=== PATIENT | female | born 1970 | race Caucasian/White ===

== ENCOUNTER → 2020-01-18 | Outpatient (CLI) | payer OTHER ==
[~2020-01-18] MED LIST: ACET325T26 PO; BACL-19 PO; LIOT5TAB10 PO; METO25TA35 PO; OMNIPAQUE 350 MG/ML, 100ML BOTTLE ONE; ONDA4TAB13 PO; QUET100T PO; TRAM50TA2 PO; VANC1VIA3 PO
== END | disposition home or self-care (01) ==
LOC: CFH 12:28
PROVIDERS: ATTEND Internal Medicine Infectious Disease
DX: R10.9 Unspecified abdominal pain (principal); K65.1 Peritoneal abscess
CPT/HCPCS: 74177; Q9967

== ENCOUNTER 2020-03-22 14:06 | Inpatient (IN) | payer OTHER ==
[~2020-03-22] VITALS: Ht 175.3 cm; Wt 62.3 kg
[~2020-03-22 14:06] MED LIST changes: -BIOT10004 PO; -CABE0.5T PO; -CLON0.1T2 PO; -LEVO200C2 PO; -MAGN400T36 PO; -MULT-658 PO; -OMNIPAQUE 350 MG/ML, 100ML BOTTLE ONE; -SUMA100T3 PO; -TRAZ150T62 PO; -[UNRECOGNIZED DRUG - OTHER]; -birth control
--- NOTE | 2020-03-22 14:20 | NUR ---
PT AMBULATORY TO ROOM 9 W/ C/O DISTENDED AND FIRM ABDOMEN. PT WENT TO SEE GI MD TODAY AND WAS SENT HERE FOR CT SCAN. IN RADIOLOGY HAD PIV INITIATED AND PT WAS TOLD TO CHECK INTO ED. PT STATES SHE HAS RUPTURED APPENDICITIS WITH COLON RESECTION END OF DECEMBER AND SPENT [address] [facility]. PT STATES SHE HAS BEEN CONSTIPATED W/ DIARRHEA THIS AM. STATES NOT WNL FOR PT. PT RESTING ON GURNEY. C/O PAIN 08/15. MONITORS APPLIED. ROBERTA DEAN AT BEDSIDE FOR EVAL.
[2020-03-22] MEDS ORDERED: MORPHINE SULFATE 4 MG/ML, 1ML ONE ×2 (14:30→15:51)
[2020-03-22] MEDS ORDERED: ONDANSETRON 2MG/ML, 2ML ONE ×2 (14:30→17:27)
[2020-03-22] MEDS ORDERED: SODIUM CHLORIDE 0.9% 1,000ML IVBOLUS ONE (14:30)
[2020-03-22] MEDS ORDERED: ONDANSETRON 2MG/ML, 2ML IVPush ONE (14:30)
[2020-03-22] MEDS: MORPHINE SULFATE 4 MG/ML, 1ML IVPush PRN ×2 (14:37→15:53)
[2020-03-22 14:59] LABS: HCT (SEDRATE) 43.4 % (34.6-47.8)
[2020-03-22 14:59] LABS: MICROSCOPIC NOT IND
[2020-03-22 15:00] LABS: BASOPHILS % (AUTO) 0 % (0-1); EOSINOPHILS % (AUTO) 0 % (1-7); LYMPHOCYTES % (AUTO) 19 % (22-44); MEAN CORPUSCULAR HEMOGLOBIN 30.8 pg (27.0-34.8); MEAN PLATELET VOLUME 9.2 fL (7.4-10.4); MONOCYTES % (AUTO) 7 % (2-9); NEUTROPHILS % (AUTO) 74 % (42-75); PLATELET COUNT 239 x10^3/uL (130-400); RED BLOOD COUNT 4.85 x10^6/uL (3.82-5.3); RED CELL DISTRIBUTION WIDTH 13.5 % (9.6-15.2)
[2020-03-22 15:01] LABS: MD NO
[2020-03-22 15:10] LABS: ALBUMIN 3.5 g/dL (3.4-5.0); CHLORIDE 104 mmol/L (98-107)
--- NOTE | 2020-03-22 15:13 | NUR ---
Break RN note. Pt c/o continued pain and nausea despite meds.
--- NOTE | 2020-03-22 15:16 | NUR ---
Break RN note: Discussed pt condition with Morris MADERA and Dr. Murcia. Dr. Murcia reports he will evaluate the pt anais. Pt updated on this.
[2020-03-22 15:18] LABS: ALANINE AMINOTRANSFERASE 22 U/L (12-78); ALKALINE PHOSPHATASE 71 U/L (45-117); ANION GAP 8 mmol/L (5-15); BILIRUBIN,TOTAL 0.5 mg/dL (0.2-1.0); C-REACTIVE PROTEIN, QUANT 0.12 mg/dL (0.02-0.49); CALCIUM 9.8 mg/dL (8.5-10.1); CREATININE 0.83 mg/dL (0.55-1.02); TOTAL PROTEIN 7.8 g/dL (6.4-8.2)
[2020-03-22] MEDS ORDERED: DIPHENHYDRAMINE 50 MG/ML, 1ML IVPush ONE (15:30)
[2020-03-22] MEDS ORDERED: METOCLOPRAMIDE 5 MG/ML, 2ML IVPush ONE (15:30)
--- NOTE | 2020-03-22 15:30 | NUR ---
Break RN note: Dr. Murcia at bedside to evaluate pt.
[2020-03-22] MEDS ORDERED: METOCLOPRAMIDE 5 MG/ML, 2ML ONE (15:51)
[2020-03-22] MEDS ORDERED: DIPHENHYDRAMINE 50 MG/ML, 1ML ONE (15:51)
--- NOTE | 2020-03-22 15:57 | NUR ---
PT MEDICATED PER MAY. RESTING ON [facility].
[2020-03-22] MEDS ORDERED: MELATONIN 5 MG TABLET PO PRN (16:30)
[2020-03-22] MEDS ORDERED: POLYETHYLENE GLYCOL 17 GM PACKET PO PRN (16:30)
[2020-03-22] MEDS ORDERED: hydrALAzine 20 MG/ML, 1ML IVPush PRN (16:30)
[2020-03-22] MEDS ORDERED: TEMAZEPAM 15 MG CAPSULE PO PRN (16:30)
[2020-03-22] MEDS ORDERED: ACETAMINOPHEN 325 MG TABLET PO PRN (16:30)
[2020-03-22] MEDS ORDERED: DOCUSATE 100 MG CAPSULE PO PRN (16:30)
[2020-03-22] MEDS ORDERED: BISACODYL 10 MG SUPP PR PRN (16:30)
--- NOTE | 2020-03-22 17:02 | NUR ---
[facility] AT BEDSIDE. PT AWARE OF ADMIT AND IS AGREEABLE.
[2020-03-22] MEDS ORDERED: ENOXAPARIN 40 MG/0.4 ML ONE (17:06)
[2020-03-22] MEDS ORDERED: LORazepam 2 MG/ML, 1ML ONE (17:07)
[2020-03-22] MEDS: LORazepam 2 MG/ML, 1ML IVPush PRN (17:10)
[2020-03-22] MEDS: ENOXAPARIN 40 MG/0.4 ML SQ SCH ×2 (17:10→17:12)
[2020-03-22] MEDS ORDERED: OXYcodone IR 5MG TABLET ONE (17:27)
[2020-03-22] MEDS: ONDANSETRON 2MG/ML, 2ML IVPush PRN (17:29)
[2020-03-22] MEDS: OXYcodone IR 5MG TABLET PO PRN (17:29)
[2020-03-22] MEDS ORDERED: LORazepam 2 MG/ML, 1ML IVPush PRN (17:30)
--- NOTE | 2020-03-22 17:38 | NUR ---
REPORT GIVEN TO ALEX GUPTA RN. ALL QUESTIONS ANSWERED. AWAITING PT TRANSPORT.
[2020-03-22 18:00] VITALS: BP 173/90
[2020-03-22] MEDS: METOPROLOL TARTRATE 25 MG TAB PO SCH (18:23)
[2020-03-22] MEDS: SODIUM CHLORIDE 0.9% 1,000 ML IV SCH (18:30)
[2020-03-22] MEDS: HYDROmorphone 2 MG/ML, 1ML IVPush PRN ×2 (19:26→20:54)
[2020-03-22] MEDS ORDERED: HYDROmorphone 1 MG/ML, 1ML INJ ONE (20:43)
[2020-03-22] MEDS ORDERED: FAMOTIDINE 40 MG TABLET ONE (20:43)
[2020-03-22] MEDS: FAMOTIDINE 20 MG TABLET PO SCH (20:53)
[2020-03-22] MEDS: QUETIAPINE 100MG TABLET PO SCH (20:53)
[2020-03-22] MEDS: TRAZODONE 100MG TABLET PO PRN ×2 (21:27→22:37)
[2020-03-23] MEDS: SODIUM CHLORIDE 0.9% 1,000 ML IV SCH (00:36)
[2020-03-23 01:14] VITALS: BP 122/72
[2020-03-23] MEDS: HYDROmorphone 2 MG/ML, 1ML IVPush PRN ×5 (01:46→19:21)
[2020-03-23] MEDS: ONDANSETRON 2MG/ML, 2ML IVPush PRN ×3 (04:58→19:21)
[2020-03-23] MEDS: METOPROLOL TARTRATE 25 MG TAB PO SCH ×2 (05:00→17:49)
[2020-03-23 05:04] VITALS: BP 127/75
[2020-03-23 06:09] LABS: BASOPHILS % (AUTO) 0 % (0-1); EOSINOPHILS % (AUTO) 0 % (1-7); LYMPHOCYTES % (AUTO) 38 % (22-44); MD NO; MEAN CORPUSCULAR HEMOGLOBIN 30.9 pg (27.0-34.8); MEAN CORPUSCULAR HGB CONC 33.7 g/dL (32.4-35.8); MEAN PLATELET VOLUME 9.7 fL (7.4-10.4); MONOCYTES % (AUTO) 11 % (2-9); NEUTROPHILS % (AUTO) 51 % (42-75); PLATELET COUNT 197 x10^3/uL (130-400); RED BLOOD COUNT 4.24 x10^6/uL (3.82-5.3); RED CELL DISTRIBUTION WIDTH 13.4 % (9.6-15.2)
[2020-03-23 06:21] LABS: CHLORIDE 112 mmol/L (98-107)
[2020-03-23 06:25] LABS: CALCIUM 8.4 mg/dL (8.5-10.1); CREATININE 0.67 mg/dL (0.55-1.02)
[2020-03-23 06:50] LABS: ANION GAP 7 mmol/L (5-15)
[2020-03-23 07:21] VITALS: BP 126/76
[2020-03-23] MEDS ORDERED: LEVO200C2 PO (07:27)
[2020-03-23] MEDS ORDERED: FAMOTIDINE 40 MG TABLET ONE ×2 (08:03→19:18)
[2020-03-23] MEDS: D5%-0.9% NACL+KCL 20MEQ 1,000 ML IV SCH ×2 (08:06→17:11)
[2020-03-23] MEDS: LIOTHYRONINE 5 MCG TABLET PO SCH (08:07)
[2020-03-23] MEDS: FAMOTIDINE 20 MG TABLET PO SCH ×2 (08:07→19:21)
[2020-03-23] MEDS: PANTOPRAZOLE 40 MG IV IVPush SCH (09:13)
[2020-03-23] MEDS ORDERED: POTASSIUM CHLORIDE 20 MEQ in SODIUM CHLORIDE 0.9% 250 ML IV ONE (10:00)
[2020-03-23 12:19] VITALS: BP 149/89
[2020-03-23] MEDS ORDERED: SUMA100T3 PO (13:53)
[2020-03-23] MEDS: ENOXAPARIN 40 MG/0.4 ML SQ SCH (16:30)
[2020-03-23] MEDS: LORazepam 2 MG/ML, 1ML IVPush PRN ×2 (16:41→21:13)
[2020-03-23 18:06] LABS: CLOSTRIDIUM DIFFICILE ANTIGEN NEGATIVE; CLOSTRIDIUM DIFFICILE TOXIN NEGATIVE (Negative)
[2020-03-23 19:11] VITALS: BP 130/82
[2020-03-23] MEDS: QUETIAPINE 100MG TABLET PO SCH (21:13)
[2020-03-23] MEDS: TRAZODONE 100MG TABLET PO PRN (21:13)
[2020-03-24] MEDS ORDERED: BIOT10004 PO (00:36)
[2020-03-24] MEDS ORDERED: MAGN400T36 PO (00:36)
[2020-03-24] MEDS ORDERED: [UNRECOGNIZED DRUG - OTHER] (00:36)
[2020-03-24] MEDS ORDERED: MULT-658 PO (00:36)
[2020-03-24] MEDS ORDERED: CLON0.1T2 PO (00:36)
[2020-03-24] MEDS ORDERED: CABE0.5T PO (00:36)
[2020-03-24] MEDS ORDERED: TRAZ150T62 PO (00:36)
[2020-03-24] MEDS ORDERED: birth control (00:37)
[2020-03-24 02:01] VITALS: BP 154/91
[2020-03-24] MEDS ORDERED: HYDROmorphone 1 MG/ML, 1ML INJ ONE ×2 (02:08→05:15)
[2020-03-24] MEDS: HYDROmorphone 2 MG/ML, 1ML IVPush PRN ×7 (02:11→21:59)
[2020-03-24] MEDS: ONDANSETRON 2MG/ML, 2ML IVPush PRN ×3 (03:45→18:59)
[2020-03-24] MEDS: LEVOTHYROXINE 200 MCG TABLET PO SCH (05:22)
[2020-03-24] MEDS: METOPROLOL TARTRATE 25 MG TAB PO SCH ×2 (05:22→18:03)
[2020-03-24] MEDS: D5%-0.9% NACL+KCL 20MEQ 1,000 ML IV SCH ×2 (05:23→19:20)
[2020-03-24 05:49] LABS: BASOPHILS % (AUTO) 0 % (0-1); EOSINOPHILS % (AUTO) 2 % (1-7); LYMPHOCYTES % (AUTO) 54 % (22-44); MEAN CORPUSCULAR HEMOGLOBIN 30.6 pg (27.0-34.8); MEAN CORPUSCULAR HGB CONC 33.6 g/dL (32.4-35.8); MEAN PLATELET VOLUME 9.5 fL (7.4-10.4); MONOCYTES % (AUTO) 10 % (2-9); NEUTROPHILS % (AUTO) 34 % (42-75); PLATELET COUNT 180 x10^3/uL (130-400); RED BLOOD COUNT 4.29 x10^6/uL (3.82-5.3); RED CELL DISTRIBUTION WIDTH 13.5 % (9.6-15.2)
[2020-03-24 05:54] LABS: CALCIUM 8.5 mg/dL (8.5-10.1); CHLORIDE 116 mmol/L (98-107)
[2020-03-24 05:57] LABS: ALBUMIN 2.6 g/dL (3.4-5.0); ANION GAP 5 mmol/L (5-15); CREATININE 0.63 mg/dL (0.55-1.02)
[2020-03-24 06:03] LABS: MD NO
[2020-03-24] MEDS: PANTOPRAZOLE 40 MG IV IVPush SCH (06:06)
[2020-03-24] MEDS: LIOTHYRONINE 5 MCG TABLET PO SCH (06:11)
[2020-03-24 07:36] VITALS: BP 122/70
[2020-03-24] MEDS: LORazepam 2 MG/ML, 1ML IVPush PRN (07:53)
[2020-03-24] MEDS: FAMOTIDINE 20 MG TABLET PO SCH ×2 (09:00→20:40)
[2020-03-24] MEDS ORDERED: MEPERIDINE/PF 25MG/0.5ML IVPush PRN (09:30)
[2020-03-24] MEDS ORDERED: EPHEDRINE 50 MG/ML, 1ML IM PRN (09:30)
[2020-03-24] MEDS ORDERED: DIPHENHYDRAMINE 50 MG/ML, 1ML IVPush PRN (09:30)
[2020-03-24] MEDS ORDERED: PROMETHAZINE 25 MG/ML, 1ML IVPush PRN (09:30)
[2020-03-24] MEDS ORDERED: OXYcodone 5 MG/5 ML ORAL.SOL UDC PO PRN (09:30)
[2020-03-24] MEDS ORDERED: LABETALOL 5MG/ML, 20ML IV PRN (09:30)
[2020-03-24] MEDS ORDERED: EPHEDRINE 50 MG/ML, 1ML IVPush PRN (09:30)
[2020-03-24] MEDS ORDERED: HYDROmorphone 1 MG/ML, 1ML INJ IVPush PRN (09:30)
[2020-03-24] MEDS ORDERED: DIAZEPAM 5 MG/ML, 2ML IVPush PRN (09:30)
[2020-03-24] MEDS ORDERED: FENTANYL PF 100 MCG/2ML IV PRN (09:30)
[2020-03-24] MEDS ORDERED: ONDANSETRON 2MG/ML, 2ML IVPush PRN (09:30)
[2020-03-24] MEDS ORDERED: PROPOFOL 10 MG/ML, 20ML ONE (09:51)
[2020-03-24 12:46] VITALS: BP 128/86
[2020-03-24] MEDS: ENOXAPARIN 40 MG/0.4 ML SQ SCH (16:30)
[2020-03-24 18:51] VITALS: BP 164/98
[2020-03-24] MEDS ORDERED: FAMOTIDINE 40 MG TABLET ONE (20:15)
[2020-03-24] MEDS: QUETIAPINE 100MG TABLET PO SCH (20:40)
[2020-03-24] MEDS: TRAZODONE 100MG TABLET PO PRN ×2 (20:44→21:59)
[2020-03-25 02:06] VITALS: BP 149/81
[2020-03-25] MEDS: HYDROmorphone 2 MG/ML, 1ML IVPush PRN ×5 (02:37→20:33)
[2020-03-25] MEDS: ONDANSETRON 2MG/ML, 2ML IVPush PRN ×3 (06:02→20:30)
[2020-03-25] MEDS: LEVOTHYROXINE 200 MCG TABLET PO SCH (06:02)
[2020-03-25] MEDS: METOPROLOL TARTRATE 25 MG TAB PO SCH ×2 (06:03→20:32)
[2020-03-25 06:40] VITALS: BP 123/78
[2020-03-25] MEDS ORDERED: FAMOTIDINE 40 MG TABLET ONE ×2 (08:12→20:23)
[2020-03-25] MEDS: LORazepam 2 MG/ML, 1ML IVPush PRN ×2 (08:17→22:41)
[2020-03-25] MEDS: LIOTHYRONINE 5 MCG TABLET PO SCH (08:18)
[2020-03-25] MEDS: FAMOTIDINE 20 MG TABLET PO SCH ×2 (08:22→20:31)
[2020-03-25] MEDS ORDERED: OMNIPAQUE 350 MG/ML, 100ML BOTTLE ONE (10:39)
[2020-03-25] MEDS: D5%-0.9% NACL+KCL 20MEQ 1,000 ML IV SCH (11:01)
[2020-03-25] MEDS ORDERED: LORazepam 2 MG/ML, 1ML IVPush ONE (11:30)
[2020-03-25 12:25] VITALS: BP 119/86
[2020-03-25] MEDS: OXYcodone IR 5MG TABLET PO PRN (12:47)
[2020-03-25 13:11] VITALS: BP 120/79
[2020-03-25] MEDS: ENOXAPARIN 40 MG/0.4 ML SQ SCH (15:11)
[2020-03-25 20:00] VITALS: BP 118/82
[2020-03-25] MEDS ORDERED: OMNIPAQUE 350 MG/ML, 150 ML BOTTLE ONE (20:04)
[2020-03-25] MEDS: QUETIAPINE 100MG TABLET PO SCH (20:32)
[2020-03-25] MEDS: TRAZODONE 100MG TABLET PO PRN ×2 (20:53→22:10)
[2020-03-26] MEDS: HYDROmorphone 2 MG/ML, 1ML IVPush PRN ×6 (00:04→23:00)
[2020-03-26 00:07] VITALS: BP 119/75
[2020-03-26] MEDS: LORazepam 2 MG/ML, 1ML IVPush PRN ×3 (06:15→17:45)
[2020-03-26] MEDS: LEVOTHYROXINE 200 MCG TABLET PO SCH (06:15)
[2020-03-26] MEDS: METOPROLOL TARTRATE 25 MG TAB PO SCH ×2 (06:15→17:57)
[2020-03-26 06:30] VITALS: BP 109/71
[2020-03-26] MEDS: D5%-0.9% NACL+KCL 20MEQ 1,000 ML IV SCH ×2 (06:44→19:06)
[2020-03-26] MEDS ORDERED: FAMOTIDINE 40 MG TABLET ONE ×2 (08:59→20:13)
[2020-03-26] MEDS: FAMOTIDINE 20 MG TABLET PO SCH ×2 (09:00→21:00)
[2020-03-26] MEDS: ESOMEPRAZOLE 40 MG IV IVPush SCH (09:07)
[2020-03-26] MEDS: LIOTHYRONINE 5 MCG TABLET PO SCH (09:08)
[2020-03-26 12:37] VITALS: BP 146/84
[2020-03-26] MEDS: ONDANSETRON 2MG/ML, 2ML IVPush PRN (15:49)
[2020-03-26] MEDS: ENOXAPARIN 40 MG/0.4 ML SQ SCH (16:30)
[2020-03-26 19:13] VITALS: BP 124/82
[2020-03-26] MEDS: QUETIAPINE 100MG TABLET PO SCH (21:47)
[2020-03-26] MEDS: TRAZODONE 100MG TABLET PO PRN (21:51)
[2020-03-27 02:10] VITALS: BP 129/71
[2020-03-27] MEDS: HYDROmorphone 2 MG/ML, 1ML IVPush PRN ×2 (02:29→10:12)
[2020-03-27] MEDS: METOPROLOL TARTRATE 25 MG TAB PO SCH ×2 (05:18→18:30)
[2020-03-27] MEDS: LEVOTHYROXINE 200 MCG TABLET PO SCH (05:18)
[2020-03-27 06:40] VITALS: BP 108/69
[2020-03-27] MEDS: LORazepam 2 MG/ML, 1ML IVPush PRN ×2 (08:30→16:11)
[2020-03-27] MEDS: ESOMEPRAZOLE 40 MG IV IVPush SCH (10:21)
[2020-03-27] MEDS: ONDANSETRON 2MG/ML, 2ML IVPush PRN ×2 (10:27→16:04)
[2020-03-27] MEDS: D5%-0.9% NACL+KCL 20MEQ 1,000 ML IV SCH ×2 (11:32→22:01)
[2020-03-27 13:04] VITALS: BP 132/80
[2020-03-27] MEDS ORDERED: FAMOTIDINE 40 MG TABLET ONE (15:03)
[2020-03-27] MEDS: FAMOTIDINE 20 MG TABLET PO SCH ×2 (15:20→20:02)
[2020-03-27] MEDS: LIOTHYRONINE 5 MCG TABLET PO SCH (15:20)
[2020-03-27] MEDS: ENOXAPARIN 40 MG/0.4 ML SQ SCH (16:30)
[2020-03-27 19:44] VITALS: BP 146/97
[2020-03-27] MEDS ORDERED: SUMATRIPTAN 25 MG TABLET PO PRN (20:30)
[2020-03-27] MEDS ORDERED: SUMATRIPTAN 50 MG TABLET ONE (20:34)
[2020-03-27] MEDS: QUETIAPINE 100MG TABLET PO SCH (22:01)
[2020-03-27] MEDS: TRAZODONE 100MG TABLET PO PRN ×2 (22:06→23:42)
[2020-03-28 00:02] VITALS: BP 123/81
[2020-03-28] MEDS: LEVOTHYROXINE 200 MCG TABLET PO SCH (05:07)
[2020-03-28] MEDS: METOPROLOL TARTRATE 25 MG TAB PO SCH ×2 (05:08→17:45)
[2020-03-28 06:41] VITALS: BP 118/81
[2020-03-28] MEDS: FAMOTIDINE 20 MG TABLET PO SCH ×2 (09:00→23:18)
[2020-03-28] MEDS ORDERED: FAMOTIDINE 40 MG TABLET ONE ×2 (09:24→23:13)
[2020-03-28] MEDS: LIOTHYRONINE 5 MCG TABLET PO SCH (09:34)
[2020-03-28] MEDS: ONDANSETRON 2MG/ML, 2ML IVPush PRN ×3 (09:34→22:34)
[2020-03-28] MEDS: ESOMEPRAZOLE 40 MG IV IVPush SCH (09:36)
[2020-03-28] MEDS: D5%-0.9% NACL+KCL 20MEQ 1,000 ML IV SCH (09:49)
[2020-03-28] MEDS: LORazepam 2 MG/ML, 1ML IVPush PRN ×2 (09:49→14:52)
[2020-03-28 12:25] VITALS: BP 148/92
[2020-03-28] MEDS: SUMATRIPTAN 100 MG TABLET PO PRN ×2 (14:47→15:07)
[2020-03-28] MEDS: ENOXAPARIN 40 MG/0.4 ML SQ SCH (15:59)
[2020-03-28 17:39] VITALS: BP 143/96
[2020-03-28] MEDS: OXYcodone/APAP 5/325MG TABLET PO PRN ×2 (17:44→22:33)
[2020-03-28] MEDS: METOCLOPRAMIDE 5 MG/ML, 2ML IVPush SCH ×2 (17:45→23:18)
[2020-03-28 19:05] VITALS: BP 131/85
[2020-03-28] MEDS ORDERED: ONDANSETRON ODT 4 MG ONE (22:31)
[2020-03-28] MEDS: QUETIAPINE 100MG TABLET PO SCH (23:17)
[2020-03-28] MEDS: TRAZODONE 100MG TABLET PO PRN (23:18)
[2020-03-29] VITALS (7 sets, daily range): BP systolic 105–157; BP diastolic 74–99
[2020-03-29] MEDS: D5%-0.9% NACL+KCL 20MEQ 1,000 ML IV SCH ×2 (02:26→16:46)
[2020-03-29] MEDS: METOCLOPRAMIDE 5 MG/ML, 2ML IVPush SCH ×4 (05:25→23:04)
[2020-03-29] MEDS: METOPROLOL TARTRATE 25 MG TAB PO SCH ×2 (05:27→17:04)
[2020-03-29] MEDS: LEVOTHYROXINE 200 MCG TABLET PO SCH (05:27)
[2020-03-29] MEDS: OXYcodone/APAP 5/325MG TABLET PO PRN ×2 (05:41→10:34)
[2020-03-29 06:43] LABS: CREATININE 0.67 mg/dL (0.55-1.02)
[2020-03-29] MEDS ORDERED: FAMOTIDINE 40 MG TABLET ONE ×2 (08:06→21:31)
[2020-03-29] MEDS: ESOMEPRAZOLE 40 MG IV IVPush SCH (08:14)
[2020-03-29] MEDS: LIOTHYRONINE 5 MCG TABLET PO SCH (08:15)
[2020-03-29] MEDS: FAMOTIDINE 20 MG TABLET PO SCH ×2 (08:15→21:34)
[2020-03-29] MEDS ORDERED: METHYLNALTREXONE 12 MG/0.6 ML SYR SQ ONE (15:00)
[2020-03-29] MEDS: ENOXAPARIN 40 MG/0.4 ML SQ SCH (16:10)
[2020-03-29] MEDS: KETOROLAC 30 MG/1 ML IVPush SCH ×2 (17:50→23:32)
[2020-03-29] MEDS: QUETIAPINE 100MG TABLET PO SCH (21:34)
[2020-03-29] MEDS: TRAZODONE 100MG TABLET PO PRN ×2 (21:41→23:32)
[2020-03-30 00:29] VITALS: BP 122/76
[2020-03-30] MEDS: D5%-0.9% NACL+KCL 20MEQ 1,000 ML IV SCH (06:16)
[2020-03-30] MEDS: LEVOTHYROXINE 200 MCG TABLET PO SCH (06:16)
[2020-03-30] MEDS: METOPROLOL TARTRATE 25 MG TAB PO SCH (06:17)
[2020-03-30] MEDS: KETOROLAC 30 MG/1 ML IVPush SCH ×2 (06:17→10:58)
[2020-03-30] MEDS: METOCLOPRAMIDE 5 MG/ML, 2ML IVPush SCH ×2 (06:17→10:57)
[2020-03-30 06:19] VITALS: BP 160/85
[2020-03-30 07:04] VITALS: BP 138/89
[2020-03-30] MEDS ORDERED: FAMOTIDINE 40 MG TABLET ONE (07:48)
[2020-03-30] MEDS: ESOMEPRAZOLE 40 MG IV IVPush SCH (07:58)
[2020-03-30] MEDS: FAMOTIDINE 20 MG TABLET PO SCH (07:58)
[2020-03-30] MEDS: POLYETHYLENE GLYCOL 17 GM PACKET PO SCH ×2 (07:59→10:58)
[2020-03-30] MEDS: LIOTHYRONINE 5 MCG TABLET PO SCH (07:59)
[2020-03-30] MEDS ORDERED: METO10TA82 PO (16:26)
== END 2020-03-30 12:50 | disposition home or self-care (01) | DRG 388 ==
LOC: ED 15:50 → OBSVTOIN 18:01 → 4NW 18:01 → INTOOBSV 18:01 → DCLOUNGE 03-30 12:38
PROVIDERS: ADMIT Family Medicine; ATTEND Family Medicine
PROC: 0DJ08ZZ Inspection of Upper Intestinal Tract, Via Natural or Artificial Opening Endoscopic (ICD-10-PCS; principal; 2020-03-24 10:15)
DX: K56.7 Ileus, unspecified (principal); E43 Unspecified severe protein-calorie malnutrition; E87.1 Hypo-osmolality and hyponatremia; K30 Functional dyspepsia; R63.4 Abnormal weight loss; Z88.2 Allergy status to sulfonamides; Z88.8 Allergy status to other drugs, medicaments and biological substances; Z20.822 Contact with and (suspected) exposure to COVID-19; Z68.20 Body mass index [BMI] 20.0-20.9, adult; E87.6 Hypokalemia; E86.1 Hypovolemia; E03.9 Hypothyroidism, unspecified; F43.12 Post-traumatic stress disorder, chronic; K57.10 Diverticulosis of small intestine without perforation or abscess without bleeding; K64.1 Second degree hemorrhoids; R13.10 Dysphagia, unspecified; Z80.3 Family history of malignant neoplasm of breast; Z80.41 Family history of malignant neoplasm of ovary; Z90.49 Acquired absence of other specified parts of digestive tract; Z98.82 Breast implant status
CPT/HCPCS: 36415; 74177; 74240; 74248; 78264; 80048; 80053; 80069; 81003; 82533; 82565; 82962; 83605; 83690; 83735; 84100; 84703; 85025; 85379; 85651; 86140; 87324; 87635; 93005; 93306; 96361; 96374; 96375; 96376; 99285; G0378; J1170; J1650; J1885; J2405; J2704; Q9967; A9541; C9113; J1200; J2060; J2270; J2765; J3480; J7030

== ENCOUNTER → 2020-03-22 | Outpatient (CLI) | payer OTHER ==
[~2020-03-22] MED LIST changes: +BIOT10004 PO; +CABE0.5T PO; +CLON0.1T2 PO; +LEVO200C2 PO; +MAGN400T36 PO; +MULT-658 PO; +SUMA100T3 PO; +TRAZ150T62 PO; +[UNRECOGNIZED DRUG - OTHER]; +birth control
== END | disposition home or self-care (01) ==
LOC: RAD 12:09
PROVIDERS: ATTEND Internal Medicine Gastroenterology
DX: N28.89 Other specified disorders of kidney and ureter (principal); M62.08 Separation of muscle (nontraumatic), other site; M48.55XA Collapsed vertebra, not elsewhere classified, thoracolumbar region, initial encounter for fracture; R10.9 Unspecified abdominal pain; R11.2 Nausea with vomiting, unspecified; R14.0 Abdominal distension (gaseous); Q63.2 Ectopic kidney
CPT/HCPCS: 74177; Q9967